=== PATIENT | male | born 1980 | race Caucasian/White ===

== ENCOUNTER → 2019-04-06 12:54 | Outpatient (CLI) | payer SELFPAY ==
--- NOTE | 2019-04-04 | VAS_PTH ---
PATIENT: MICHELET PAZ LOC: [facility] U#:[id number] AGE/SX: 44/M ROOM: RE04/06/[address]: Dr. Jeffrey Dawson MD : 1980 BED: DIS: SPEC #: [id number] RECD: 04/04/19 17:02 STATUS: STEFANIE ANDREA #: [id number] ADIA: 04/04/19 00:[address]: Jeffrey Dawson DEPT: SURGICAL PATHOLOGY RECD BY: Cindy Ortiz ENTERED: 04/07/19 10:17 SP TYPE: VAS OTHR DR: MD Toby Cameron Tissues: A - Vas deferens, NOS B - Vas deferens, NOS Procedures: Surgery Specimen Level II HEADER OPERATION: Bilateral partial vasectomy PRE-OP DIAGNOSIS: Sterilization TISSUE SUBMITTED: A - Left vas deferens, B - Right vas deferens MICROSCOPIC DIAGNOSIS A. Left vas deferens, partial vasectomy: Completely transected segment of vas deferens, no pathologic diagnosis. B. Right vas deferens, partial vasectomy: Completely transected segment of vas deferens, no pathologic diagnosis. ERIKA:marbella 04/08/19 MICROSCOPIC DESCRIPTION Slides are reviewed. GROSS DESCRIPTION A - Received is one container designated left vas deferens. The specimen consists of a tubular segment of graves soft tissue measuring 1.5 cm in length and 0.3 cm in diameter. The entire specimen is submitted in one cassette. It will be serially sectioned at the time of embedding. B - Received is one container designated right vas deferens. The specimen consists of a tubular segment of graves soft tissue measuring 1 cm in length and 0.3 cm in diameter. The entire specimen is submitted in one cassette. It will be serially sectioned at the time of embedding. / ERIKA:marbella 04/07/19 TC:4 CPT: 27224 x2
[2019-04-04 13:00] VITALS: BMI 27.3
== END ==
PROVIDERS: PCP Family Medicine; Visit Provider Surgery
DX: Z30.2 Encounter for sterilization (principal)
CPT/HCPCS: 88302